=== PATIENT | female | born 1975 | race Two or more races ===

== ENCOUNTER 2024-02-26 10:46 | Emergency (ER) | payer MEDICAID, SELFPAY ==
[2024-02-26 11:04] VITALS: BP 110/75; PULSE 79; RESP 19; TEMP 36.9; O2SAT 95; BMI 33.6
--- NOTE | 2024-02-26 11:24 | XR_ITS ---
Examination: CT abdomen and pelvis without contrast. Coronal 3-D reconstructions. Sagittal 2-D reconstructions. Date and time of exam:February 26, 2024 1503 hours INDICATIONS: Right-sided abdominal pain with diarrhea beginning 3 days ago CTDI: vol (mGy): 136.9 DLP: (mGycm): 748 Technique: Axial images of the abdomen have been obtained, 3 mm slice thickness Intravenous contrast material has not been administered. Low dose protocols were performed. One or more of the following dose reduction techniques were used; automated exposure control, adjustment of the mA and/or KV according to patient size, use of iterative reconstruction technique. Findings: Diffuse fatty infiltration throughout the liver Absent gallbladder Spleen not enlarged No pancreatic or adrenal mass No renal or ureteral calculi, no hydronephrosis Normal appendix There is inflammatory change around the cecum axial image 117 No bowel obstruction No diverticulitis Intact urinary bladder The osseous structures are intact IMPRESSION: Normal appendix There is inflammatory change around the cecum, consider colitis, underlying tumor in the cecal region not excluded, recommend colonoscopy follow-up
[2024-02-26] MEDS: FAMOTIDINE 20 MG TABLET 40 MG PO (11:38)
[2024-02-26] MEDS: ACETAMINOPHEN 500 MG TABLET 1000 MG PO (11:38)
[2024-02-26 12:11] LABS: Basophils # (Auto) 0.1 Thou/mm3 (0.0-0.2); Basophils % (Auto) 1 % (0-2.5); Eosinophils # (Auto) 0.3 Thou/mm3 (0.0-0.5); Eosinophils % (Auto) 2 % (0-10); Hematocrit 39.1 % (36.0-46.0); Hemoglobin 13.5 g/dL (12.0-16.0); Immature Granulocytes % (Auto) 0 % (0-0); Immature Granulocytes Auto 0.04 Thou/mm3 (0.00-0.00); Lymphocytes # (Auto) 3.7 Thou/mm3 (1.0-4.8); Lymphocytes % (Auto) 32 % (10-50); Mean Corpuscular HGB Conc 34.5 g/dl (31.0-37.0); Mean Corpuscular Volume 93 fL (80-100); Monocytes # (Auto) 1.1 Thou/mm3 (0.0-0.8); Monocytes % (Auto) 9 % (0-12); Neutrophils # (Auto) 6.6 Thou/mm3 (1.8-7.7); Neutrophils % (Auto) 56 % (37-80); Nucleated Red Blood Cell % 0 /100 WBC (0); Platelet Count 260 Thou/mm3 (140-440); Red Blood Count 4.22 Miln/mm3 (4.00-5.20); White Blood Count 11.6 Thou/mm3 (3.6-11.0)
[2024-02-26 12:32] LABS: Alanine Aminotransferase 28 U/L (10-49); Albumin, Serum 4.2 gm/dL (3.5-5.0); Albumin/Globulin Ratio 1.2 (1.2-2.2); Alkaline Phosphatase 136 U/L (46-116); Anion Gap 8 (7-16); Aspartate Amino Transferase 17 U/L (0-34); BUN/Creatinine Ratio 13 Ratio (12-20); Bilirubin,Total 0.3 mg/dL (0.3-1.2); Blood Urea Nitrogen 8 mg/dL (9-23); Carbon Dioxide 27.3 mMol/L (20.0-31.0); Chloride 99 mMol/L (98-107); Creatinine (Component) 0.6 mg/dL (0.6-1.3); Estimated Creatinine Clearance 119.3 mL/min (>60); Globulin 3.4 gm/dL (2.3-3.5); Glucose 252 mg/dL (74-106); Lipase 31 U/L (12-53); Osmolality,Calculated 275 (275-295); Potassium 3.7 mMol/L (3.4-5.1); Sodium 134 mMol/L (136-145); Total Protein 7.6 gm/dL (5.7-8.2); eGFR > 60 See Note
[2024-02-26 13:14] LABS: Collection Type, Urine Clean Catch
[2024-02-26 13:29] LABS: Bacteria,Urine Rare; Bilirubin,Urine Negative (Negative); Blood,Urine Negative (Negative); Clarity,Urine Clear (Clear/Hazy); Color,Urine Lt-Yellow (Lt Yel-Yel); Culture Indicated,Urine Not Indicated; Glucose, Urine 4+ (Negative); Ketones,Urine Negative (Negative); Leukocyte Esterase,Urine Negative (Negative); Nitrite,Urine Negative (Negative); PH,Urine 6.5 (5.0-7.0); Protein,Urine Negative (Neg - Trace); RBC,Urine < 1 /hpf (0-3); Specific Gravity,Urine 1.016 (1.001-1.035); Squamous Epithelial Cell,Urine 5 /hpf (0-5); Urobilinogen,Urine Negative mg/dL (0.0-1.0); WBC,Urine 2 /hpf (0-5)
[2024-02-26 13:36] LABS: HCG,Qualitative Serum Negative
[2024-02-26 15:23] VITALS: BP 109/68; PULSE 75; RESP 16; TEMP 36.9; O2SAT 98
--- NOTE | 2024-02-26 16:31 | PD.EDABDPN ---
ED Abdominal Pain RME/HPI General Chief Complaint: Abdominal Pain Stated complaint: stomach pain x2 days Time seen by provider: 02/26/24 11:17 Arrival date/time: 02/26/24 10:46 48-year-old female presents the emergency department complains of left lower abdominal pain ongoing x 2 days patient reports no chest pain shortness of breath headache dizziness weakness Limitations: no limitations Related Data Home Medications ?Medication ?Instructions ?Recorded ?Confirmed ibuprofen 400 mg tablet 800 mg PO Q8HR PRN Pain 04/23/18 04/23/18 levothyroxine 25 mcg tablet 25 mcg PO QDAY 04/23/18 12/05/18 (Synthroid) metformin 500 mg tablet 500 mg PO QDAY 04/24/18 12/05/18 Previous Rx's ?Medication ?Instructions ?Recorded docusate sodium 100 mg capsule 100 mg PO BID #50 caps 12/05/18 (Colace) hydrocodone 5 mg-acetaminophen 325 1 tab PO Q6H PRN pain #20 tabs 12/05/18 mg tablet ([place]) hydrocodone 5 mg-acetaminophen 325 1 tab PO BID PRN pain #6 tabs 02/26/24 mg tablet metoclopramide HCl 10 mg tablet 10 mg PO Q6H PRN nausea and 02/26/24 (Reglan) vomiting #30 tabs Allergies Allergy/AdvReac Type Severity Reaction Status Date / Time No Known Allergies Allergy Verified 02/26/24 10:47 Review of Systems Review of Systems Systems Reviewed: All systems reviewed, normal except as documented Constitutional Constitutional: Reports system reviewed and no additional complaints, except as documented, Denies fever(s) and Denies headache(s) Eyes Eyes: Reports system reviewed and no additional complaints, except as documented and Denies blurry vision ENT Ears, Nose, Mouth, and Throat: Reports system reviewed and no additional complaints, except as documented, Denies headache(s), Denies nasal congestion and Denies nasal discharge Cardiovascular Cardiovascular: Reports system reviewed and no additional complaints, except as documented, Denies chest pain and Denies dyspnea Respiratory Respiratory: Reports system reviewed and no additional complaints, except as documented, Denies chest congestion, Denies cough and Denies dyspnea Gastrointestinal Gastrointestinal: Reports system reviewed and no additional complaints, except as documented, Reports abdominal pain, Denies loose stools, Reports nausea and Denies vomiting Integumentary/Breasts Skin/Breast: Reports system reviewed and no additional complaints, except as documented and Denies rash Neurologic Neurologic: Reports system reviewed and no additional complaints, except as documented, Reports as per HPI and Denies headache(s) Past Medical History Past Medical History NEUROLOGIC: Negative Neurological Disorders or Seizures CARDIAC: Negative Cardiac Disorders or Congestive Heart Failure RESPIRATORY: Positive Asthma (SEASONAL); Negative Chronic Obstructive Pulmonary Disease (COPD) GASTROINTESTINAL: Positive Gall Bladder Disease; Negative Gastrointestinal Disorders or Hepatitis GENITOURINARY: Negative Genitourinary Disorders or Renal Disease (GESTATIONAL DIABETES) REPRODUCTIVE: Positive Previous Pregnancies (X7) MUSCULOSKELETAL: Negative Musculoskeletal Disorders ENDOCRINE: Positive Endocrine Disorders, Diabetes Mellitus Type 2 and Hypothyroidism; Negative Diabetes Mellitus Type 1 HEMATOLOGIC: Negative Blood Disorders OTHER HISTORY: Negative Hospitalization, Autoimmune Disease, Shingles, Falls, Chicken Pox, Measles, Mumps, Pertussis or Cancer Family History FAMILY HISTORY: Positive Family Cardiac Disorders (BROTHER(STROKE)); Negative Family Psychiatric Problems, Family Respiratory Disorders, Family Gastrointestinal Problems, Family Cancer, Family Surgery or Family Anesthesia Reaction Surgical History SURGICAL: Positive Section; Negative Hysterectomy or Tubal Ligation Social History SMOKING STATUS: Never smoker ED Exam General Limitations: Present no limitations General appearance: Present alert and in no apparent distress Head Head exam: Present atraumatic Eye Eye exam: Present normal appearance, PERRL and EOMI ENT ENT exam: Present normal exam, normal oropharynx and mucous membranes moist Neck Neck exam: Present normal inspection, full ROM and trachea midline Chest Chest inspection: Present normal inspection and symmetric chest wall rise Respiratory Respiratory exam: Present normal lung sounds bilaterally Cardiovascular Cardiovascular exam: Present regular rate, normal rhythm and normal heart sounds Abdominal Exam Abdominal exam: Present soft, tenderness (Mild tenderness left lower quadrant) and normal bowel sounds; Absent distention, guarding, rebound or rigidity Abdominal tenderness: Present LLQ and mild Extremities Exam Extremities exam: Present normal inspection and full ROM Back Exam Back exam: Present normal inspection and full ROM Neurological Exam Neurological exam: Present alert, oriented X3 and CN II-XII intact Psychiatric Psychiatric exam: Present normal affect and normal mood Skin Skin exam: Present warm, dry, intact and normal color Course Quality Measures none Orders Category Date Time Status CT abdomen pelvis wo con Stat Exams 02/26/24 11:24 Completed CBC Stat Lab 02/26/24 11:57 Completed Comprehensive Metabolic Panel Stat Lab 02/26/24 11:57 Completed HCG,Qualitative Serum Stat Lab 02/26/24 11:57 Completed Lipase Stat Lab 02/26/24 11:57 Completed UA, C/S IF [Urinalysis, C/S if Indicated] Stat Lab 02/26/24 12:55 Completed Acetaminophen Tab [Tylenol ES Tab] Med 02/26/24 11:24 Discontinued 1,000 mg PO X1 ONE Famotidine [Pepcid] Med 02/26/24 11:24 Discontinued 40 mg PO X1 ONE Vital Signs Vital signs: Vital Signs Temperature 98.5 F 02/26/24 11:04 Pulse Rate 79 02/26/24 11:04 Respiratory Rate 19 02/26/24 11:04 Blood Pressure 110/75 02/26/24 11:04 Pulse Oximetry (%) 95 02/26/24 11:04 Oxygen Delivery Method Room Air 02/26/24 11:04 O2 saturation 95% room air within normal limits Abdominal Pain MDM MDM Narrative MDM Narrative:: 48-year-old female presents the emergency department complains of left lower abdominal pain ongoing x 2 days patient reports no chest pain shortness of breath headache dizziness weakness On exam patient well-appearing patient does not appear ill or toxic in no acute distress Lab work as well as CT scan obtained Lab work no acute emergent findings noted CT scan reviewed with the patient patient given a copy of her CT report instructed to have outpatient colonoscopy Patient discharged home in no distress to follow-up with primary care doctor in the next 24 to 48 hours and for any worsening symptoms to return to the ER immediately Patient data External records reviewed:: [facility] previous records Clinical information provided by:: patient Social determinants that could affect healthcare access:: none Patient has the following chronic illnesses:: None How is presenting disease/condition affected by chronic disease/condition?: no chronic disease Evaluation data The following diagnostics were reviewed and interpreted by me:: radiology exam(s) Lab and/or radiology exams considered but not ordered:: Radiology obtained Interpretation Summary: Reviewed by me Medications / Prescriptions Medications or Prescriptions considered but not ordered:: Given Medication administrations:: Medication Administration History Discontinued Medications Acetaminophen (Acetaminophen 500 Mg Tablet) 1,000 mg PO X1 ONE Stop: 02/26/24 11:25 Last Admin: 02/26/24 11:38 Dose: 1,000 mg Documented By: GM Famotidine (Famotidine 20 Mg Tablet) 40 mg PO X1 ONE Stop: 02/26/24 11:25 Last Admin: 02/26/24 11:38 Dose: 40 mg Documented By: GM Given Consultations Consultation(s) initiated? (list below): No Diagnosis Differential diagnosis abdominal pain: other Most likely diagnosis given after review of the tests above:: Colitis Admission Indicated Admission indicated?: not indicated Admission Request Was there a request for admission?: No Disposition Plan Disposition Plan: Discharge Discharge Attestation Discharge Attestation: The patient and all family members were given an opportunity to ask questions and understood the discharge instructions. Discharge instructions specifically effects, indications for sooner follow up or return to the emergency department, and the expected course of current diagnosis. Patient condition: Stable Discharge Plan Plan Patient Disposition: HOME (Self Care) Disposition Comment: Stable Prescriptions/Referrals Prescriptions/Med Rec: New hydrocodone-acetaminophen 5-325 mg tablet 1 tab PO BID MDD 10 PRN (Reason: pain) Qty: 6 0RF metoclopramide HCl [Reglan] 10 mg tablet 10 mg PO Q6H PRN (Reason: nausea and vomiting) Qty: 30 0RF No Action ibuprofen 400 MG tablet 800 mg PO Q8HR PRN (Reason: Pain) levothyroxine [Synthroid] 25 mcg Tablet 25 mcg PO QDAY metformin 500 mg Tablet 500 mg PO QDAY docusate sodium [Colace] 100 mg capsule 100 mg PO BID Qty: 50 0RF hydrocodone-acetaminophen [[place]] 5-325 mg tablet 1 tab PO Q6H MDD 4 PRN (Reason: pain) Qty: 20 0RF Referrals: Zay Medina PA-C [Primary Care Provider] - 02/27/24 Problem List Clinical Impression: Abdominal pain Patient/Caregiver Discharge Instructions Education Materials: Abdominal Pain Additional Instructions: Please follow up with your primary care doctor in the next 24-48hrs for any worsening symptoms return here immediately Print Language: Mohawk Stand Alone Forms: [employer] Award Info., Patient Portal Info Letter Attestation Attestation The patient was seen by the midlevel practitioner. I, the co-signing physician, was present during the entire ER visit. While I did not physically examine the patient, I was available for consultation as needed.
== END 2024-02-26 16:48 | disposition home or self-care (01) ==
PROVIDERS: Nurse Practitioner Primary Care; Emergency Provider Emergency Medicine; PCP Physician Assistant
DX: R10.32 Left lower quadrant pain (principal)
CPT/HCPCS: 36415; 74176; 80053; 81001; 83690; 84703; 85025; 99284; A9270

== ENCOUNTER 2024-10-02 06:40 | Day surgery (SDC) | payer MEDICAID, SELFPAY ==
[2024-10-01 11:50] VITALS: BMI 39.2
[2024-10-02] VITALS (9 sets, daily range): BP systolic 108–120; BP diastolic 61–92; PULSE 68–79; RESP 12–19; TEMP 36.6; O2SAT 91–98; BMI 40.4
[2024-10-02] MEDS: fentaNYL CIT INJ 50 mCg/ML AMP 2ML (ASD USE ONLY) IVP (07:26)
[2024-10-02] MEDS: SODIUM CHLORIDE 0.9% 500 ML 500 ML 100 ML IV (07:27)
[2024-10-02] MEDS: MIDAZOLAM INJ 1 MG/ML VIAL 2 ML (ASD USE ONLY) 2 MG IVP (07:28)
== END 2024-10-02 08:25 | disposition home or self-care (01) ==
PROVIDERS: PCP Physician Assistant; Referring Provider Surgery; Visit Provider Surgery
PROC: 0DBE8ZX Excision of Large Intestine, Via Natural or Artificial Opening Endoscopic, Diagnostic (ICD-10-PCS; CPT 45380; principal; 2024-10-02 07:30)
DX: Z12.11 Encounter for screening for malignant neoplasm of colon (principal); K62.89 Other specified diseases of anus and rectum; D12.3 Benign neoplasm of transverse colon; K64.1 Second degree hemorrhoids
CPT/HCPCS: 45380; 81025; J1200; J2250; J3010; J7999